=== PATIENT | female | born 1955 | race Caucasian/White ===

== ENCOUNTER 2016-09-24 21:52 | Emergency (ER) | payer OTHER ==
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
[~2016-09-24 21:52] MED LIST: BENTYL10 MG PO; CARDIZEM CD PO; LISINOPRIL-HCTZ1 T18 PO; PREMARIN PO; PROTONIX PO; TEGRETOL PO
== END 2016-09-24 23:50 | disposition home or self-care (01) ==
LOC: CFTX 21:52
DX: S40.012A Contusion of left shoulder, initial encounter (principal); I10 Essential (primary) hypertension; Z88.2 Allergy status to sulfonamides; Z88.0 Allergy status to penicillin; Z88.8 Allergy status to other drugs, medicaments and biological substances; Y08.89XA Assault by other specified means, initial encounter; Y92.22 Religious institution as the place of occurrence of the external cause
CPT/HCPCS: 71010; 73030; 99284